=== PATIENT | male | born 1995 | race Two or more races ===

== ENCOUNTER 2020-08-23 13:02 | Emergency (ER) | payer SELFPAY ==
--- NOTE | 2020-08-23 13:40 | EDM.PDOC ---
ED HPI GENERAL MEDICAL PROBLEM - General Chief Complaint: ENT Problem Stated Complaint: DENTAL COMPLAINT Time Seen by Provider: 08/23/20 13:20 Source of Information: Reports: Patient History Limitations: Reports: No Limitations - History of Present Illness INITIAL COMMENTS - FREE TEXT/NARRATIVE: 25-year-old male presents to the ED complaining of diffuse mouth pain particular noticeable on his right upper and lower molar teeth. He states he can hardly chew because his gums are so sore. He has not recently changed toothpaste. He has not recently seen a dentist. He flosses and brushes twice daily. Not been able to get into a local dentist as none of them are apparently accepting new patients according to the patient. Does not smoke cigarettes or chew tobacco. He is appreciated that there seems to be some bleeding from his gums at times. He does have pain coming from his right upper molars but his wisdom teeth are coming in. Onset: Gradual Onset Date: 08/08/20 (Dental discomfort in his gums primarily throughout his mouth for the last 2 weeks. Has been using a lot of Ampicil.) Duration: Day(s):, Getting Worse Location: Reports: Face (Pain throughout his gingiva and right upper molar teeth.) Quality: Reports: Ache, Burning Severity: Moderate Improves with: Reports: None Worsens with: Reports: Other Context: Denies: Activity (Since with trying to eat and to brush his teeth. 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 (see below) (He has been using quite a bit of Ambusil.) Right Upper Tooth/Teeth Pain Score (Numeric/FACES): 8 - Related Data Allergies Allergy/AdvReac Type Severity Reaction Status Date / Time amoxicillin Allergy Severe Cannot Verified 08/23/20 13:11 Remember Home Meds: Home Meds Clindamycin HCl 300 mg PO TID #24 capsule 08/23/20 [Rx] Past Medical History - Past Surgical History HEENT Surgical History: Reports: Other (See Below) Other HEENT Surgeries/Procedures: dental issues Social & Family History - Tobacco Use Tobacco Use Status *Q: Current Every Day Tobacco User Years of Tobacco use: 5 Packs/Tins Daily: 0.3 - Caffeine Use Caffeine Use: Reports: Soda - Recreational Drug Use Recreational Drug Use: No - Living Situation & Occupation Living situation: Reports: Single Occupation: Employed Social History Comment: Works at [employer]. ED ROS ENT - Review of Systems Review Of Systems: See Below Constitutional: Denies: Fever, Chills, Malaise, Weakness, Fatigue, Decreased Appetite, Weight Loss HEENT: Reports: Dental Pain (Gingiva pain throughout his mouth. Pain coming from his upper right third and second molars) Respiratory: Reports: No Symptoms Cardiovascular: Reports: No Symptoms Endocrine: Reports: No Symptoms GI/Abdominal: Reports: No Symptoms : Reports: No Symptoms Musculoskeletal: Reports: No Symptoms Skin: Reports: No Symptoms Neurological: Reports: No Symptoms Psychiatric: Reports: No Symptoms Hematologic/Lymphatic: Reports: No Symptoms Immunologic: Reports: No Symptoms ED EXAM, ENT - Physical Exam Exam: See Below Exam Limited By: No Limitations General Appearance: Alert, WD/WN, No Apparent Distress, Other (Temperature is 37.1 with a heart rate of 73 in sinus respiratory days 20 BP 124/72 with pulse ox of 97% room air.) Eye Exam: Bilateral Eye: Normal Inspection, PERRL Mouth/Throat: Other (Patient has a necrotic smell in his breath. The gingiva of both upper and lower are swollen and appear inflamed and easily friable. He is right upper and lower third molars are partially erupted I can see about 50% of the tooth but they are not completely erupted I suspect this is causing him dental discomfort. However he appears to have a benedict gingivitis with no ulceration evident. The reason for this is unexplainable. I have asked him to watch what kind of toothpaste is using to make sure he is not developing a reaction to chemicals in toothpaste such as lauryl sulfate. I have advised him to still see a dentist and have panoramic views done to make sure his wisdom teeth are coming in straight and that he does not need them extracted.) Head: Atraumatic, Normocephalic Neck: Normal Inspection, Supple, Non-Tender, Full Range of Motion. No: Lymphadenopathy (L), Lymphadenopathy (R) Respiratory/Chest: No Respiratory Distress, Lungs Clear, Normal Breath Sounds, No Accessory Muscle Use, Chest Non-Tender Cardiovascular: Normal Peripheral Pulses, Regular Rate, Rhythm, No Edema, No Murmur, No Rub Course - Vital Signs Last Recorded V/S: Last Vital Signs Temp 37.1 C 08/23/20 13:15 Pulse 73 08/23/20 13:15 Resp 20 08/23/20 13:15 BP 124/72 08/23/20 13:15 Pulse Ox 97 08/23/20 13:15 - Radiology Interpretation Free Text/Narrative:: 25-year-old male presents to the ED with benedict gingivitis not due to poor dental care. Unexplained why his gingiva are so inflamed unless he is sensitive to his toothpaste. His teeth are actually white and look to be in very good condition with no cavities evident. His wisdom teeth are erupting on the right side both upper and lower and are causing him some dental discomfort or mouth pain. However he has a very necrotic smell to his breath from I believe gingivitis. Going to place him on clindamycin 300 mg 3 times daily for 8 days since he is allergic to penicillin. I will still encourage him to follow-up with a dentist to have panoramic x-rays done of his teeth to make sure his wisdom teeth are coming in straight which they appear to be clinically. Also if he continues to have problems with his gingiva he may need to see a soyfreeze operator. Departure - Departure Time of Disposition: 13:33 Disposition: Home, Self-Care 01 Condition: Fair Clinical Impression: Gingivitis due to hypersensitivity reaction - Discharge Information *PRESCRIPTION DRUG MONITORING PROGRAM REVIEWED*: Not Applicable *COPY OF PRESCRIPTION DRUG MONITORING REPORT IN PATIENT BINA: Not Applicable Prescriptions: Clindamycin HCl 300 mg PO TID #24 capsule Instructions: Preventive Dental Care, Adult Referrals: PCP,None [Primary Care Provider] - Forms: ED Department Discharge Additional Instructions: Evaluation of dental pain in the emergency room today reveals evidence of gingivitis or inflammation of the gums in multiple areas of your mouth. There is pain coming from a partially erupted right wisdom tooth with only half of the tooth being visual bowel at this time. As you indicated the gums themselves are very sore to touch and are friable and bleed easily. Have a look at your toothpaste and make sure that it does not contain chemical lauryl sulfate as people can develop allergic reaction to this medication and cause gingivitis. Suggest a course of antibiotic clindamycin 300 mg tablet 3 times daily spaced about 8 hours apart for the next 8 days to clear up infection in the gums. I would still suggest a panoramic x-ray with a dentist to look at the wisdom teeth to make sure they are coming in straight and not at an angle which would indicate they would need to be surgically removed. Sepsis Event Note (ED) - Evaluation Sepsis Screening Result: No Definite Risk - Focused Exam Vital Signs: Vital Signs Temp Pulse Resp BP Pulse Ox 08/23/20 13:15 37.1 C 73 20 124/72 97
== END 2020-08-23 14:00 | disposition home or self-care (01) ==
LOC: JD.ED 13:02
DX: K05.10 Chronic gingivitis, plaque induced (principal); Z88.1 Allergy status to other antibiotic agents; Z72.0 Tobacco use
CPT/HCPCS: 99282; 99283